=== PATIENT | female | born 1990 | race Hispanic/Latino ===

== ENCOUNTER 2018-08-02 23:50 | Emergency (ER) | payer SELFPAY ==
[2018-08-03] MEDS ORDERED: Acetaminophen 325 MG TAB ONE (01:40)
--- NOTE | 2018-08-03 07:43 | ULT ---
PELVIC ULTRASOUND: 08/03/2018. COMPARISON: None. HISTORY: Three months , vaginal bleeding. TECHNIQUE: Multiplanar, castillo scale, sonographic imaging of the pelvis is obtained with transabdominal imaging. FINDINGS: There is a single intrauterine gestation noted. Cervical length is 3.4 cm. Placenta is located post eriorly, with the placental margin approaching the cervical os, consistent with a low-lying placenta. presentation is transverse with head to maternal right. heart rate is 149 b.p.m. Amniotic fluid appears qualitatively normal. No evidence for placental abruption. Biometry: BPD 2.4 cm, 14 weeks 1 day FL 1.2 cm, 13 weeks 4 days AC 7.6 cm, 14 weeks 1 day HC 9.3cm, 14 weeks 2 days Average based on ultrasound is 14 weeks 0 days with estimated date of delivery on 02/01/2019. anatomy cannot be assessed at this gestational age. IMPRESSION: Single intrauterine gestation demonstrating no adverse features. POS: [facility]
== END 2018-08-03 03:40 | disposition home or self-care (01) ==
LOC: ERS 23:50 → EDBD 23:50 → ERS 08-03 03:40
DX: O20.9 Hemorrhage in early pregnancy, unspecified (principal); Z3A.13 13 weeks gestation of pregnancy
CPT/HCPCS: 76856; 93976; 96360; 96361